=== PATIENT | female | born 1985 | race Two or more races ===

== ENCOUNTER 2018-08-23 10:12 | Outpatient (CLI) | payer OTHER ==
[~2018-08-23 10:12] MED LIST: KETO10TA2 PO
== END 2018-08-23 10:16 | disposition home or self-care (01) ==
LOC: RX STUDY 10:12
DX: N80.8 Other endometriosis (principal)

== ENCOUNTER 2018-08-27 12:07 | Emergency (ER) | payer OTHER ==
[~2018-08-27] VITALS: Ht 160 cm; Wt 72.6 kg
== END 2018-08-27 15:25 | disposition home or self-care (01) ==
LOC: ER 12:07
DX: R10.2 Pelvic and perineal pain (principal)

== ENCOUNTER 2019-04-11 19:49 | Emergency (ER) | payer OTHER ==
[~2019-04-11] VITALS: Ht 157.5 cm; Wt 75.3 kg
[2019-04-11] MEDS ORDERED: MEDROLPACK PO (22:40)
[2019-04-11] MEDS ORDERED: SKELAXIN800 MG PO (22:40)
[2019-04-11] MEDS ORDERED: CELEBREX200MG PO (22:40)
== END 2019-04-11 22:49 | disposition home or self-care (01) ==
LOC: ER 19:49
DX: M25.552 Pain in left hip (principal); M25.551 Pain in right hip

== ENCOUNTER 2020-02-10 10:03 | Emergency (ER) | payer OTHER ==
[~2020-02-10] VITALS: Ht 157.5 cm; Wt 66.2 kg
[~2020-02-10 10:03] MED LIST changes: +CELEBREX200MG PO; +MEDROLPACK PO; +SKELAXIN800 MG PO
[2020-02-10] MEDS ORDERED: ZITHROMAX500 MG PO (12:39)
[2020-02-10] MEDS ORDERED: ORPHENADRINE C100 MG PO (12:39)
== END 2020-02-10 12:51 | disposition home or self-care (01) ==
LOC: ER 10:03
DX: R51 Headache (principal); M54.2 Cervicalgia

== ENCOUNTER 2021-04-27 19:46 | Emergency (ER) | payer OTHER ==
[~2021-04-27] VITALS: Ht 154.9 cm; Wt 74.8 kg
[~2021-04-27 19:46] MED LIST changes: +ORPHENADRINE C100 MG PO; +ZITHROMAX500 MG PO
== END 2021-04-28 09:13 ==
LOC: ER 19:46
DX: R10.13 Epigastric pain (principal); N83.201 Unspecified ovarian cyst, right side

== ENCOUNTER 2021-07-20 08:30 | Inpatient (IN) | payer OTHER ==
[~2021-07-20] VITALS: Ht 157.5 cm; Wt 68.0 kg
== END 2021-07-25 17:17 | disposition home or self-care (01) | DRG 743 ==
LOC: OB/GYN 07-22 05:45 → O/R 07-22 05:45 → OB/GYN 07-22 07:00
PROVIDERS: ADMIT Obstetrics & Gynecology Gynecologic Oncology; ATTEND Obstetrics & Gynecology Gynecologic Oncology
PROC: 0UT00ZZ Resection of Right Ovary, Open Approach (ICD-10-PCS; 2021-07-22)
PROC: 0UT70ZZ Resection of Bilateral Fallopian Tubes, Open Approach (ICD-10-PCS; 2021-07-22)
PROC: 07BC0ZZ Excision of Pelvis Lymphatic, Open Approach (ICD-10-PCS; 2021-07-22)
PROC: 0UT90ZZ Resection of Uterus, Open Approach (ICD-10-PCS; principal; 2021-07-22 07:00)
DX: D25.1 Intramural leiomyoma of uterus (principal); N72 Inflammatory disease of cervix uteri; N83.201 Unspecified ovarian cyst, right side; D36.0 Benign neoplasm of lymph nodes; M54.2 Cervicalgia

== ENCOUNTER 2022-10-22 18:58 | Emergency (ER) | payer OTHER ==
[~2022-10-22] VITALS: Ht 157.5 cm; Wt 61.2 kg
== END 2022-10-22 22:35 | disposition home or self-care (01) ==
LOC: ER 18:58
DX: M62.838 Other muscle spasm (principal)

== ENCOUNTER 2022-11-08 18:49 | Emergency (ER) | payer OTHER ==
[~2022-11-08] VITALS: Ht 157.5 cm; Wt 61.2 kg
== END 2022-11-08 21:51 | disposition home or self-care (01) ==
LOC: ER 18:49
DX: M54.9 Dorsalgia, unspecified (principal)

== ENCOUNTER 2024-05-27 20:09 | Emergency (ER) | payer OTHER ==
[~2024-05-27] VITALS: Ht 157.5 cm; Wt 68.0 kg
[2024-05-27] MEDS ORDERED: OMEPRAZOLE-BIC1 EACH PO (20:45)
== END 2024-05-27 20:58 | disposition home or self-care (01) ==
LOC: ER 20:10
DX: K21.9 Gastro-esophageal reflux disease without esophagitis (principal); K76.0 Fatty (change of) liver, not elsewhere classified